=== PATIENT | male | born 1960 | race Caucasian/White ===

== ENCOUNTER → 2018-05-28 15:09 | Outpatient (CLI) | payer MEDICAID, SELFPAY ==
--- NOTE | 2018-05-28 15:15 | CT_ITS ---
STUDY: LOW DOSE CT LUNG CANCER SCREENING REASON FOR EXAM: Male, 58 years old. 45 pack-year smoking history. RADIATION DOSAGE (If Supplied By Facility): CTDIvol = ( 4.02 ) mGy, DLP = ( 142.95 ) mGycm TECHNIQUE: No contrast was administered. Low dose technique was utilized (average mAS-38 and kVp 120). 1.25 mm axial source images with a slice interval of 1.25-mm were reconstructed in lung windows. 2.5 mm axial source images with a slice interval of 2.5-mm were reconstructed in lung windows. 5.0 mm axial source images with a slice interval of 5.0-mm were reconstructed in soft tissue windows. Nodule measured using lung windows on PACS and/or independent workstation with automated measurement of minimum and maximum diameter. Nodule measurement reported as average diameter rounded to the nearest whole number. Growth is defined as an increase ins size of greater than 1.5 mm. COMPARISON: None. NODULES: No suspicious nodules are seen. Total lung nodules (excluding granulomas): 0 Aorta: Atherosclerotic calcification of the aortic arch. Coronary arteries: Coronary artery calcification. Mediastinal nodes: Small calcified mediastinal lymph nodes. Other chest and abdominal findings: CT/Low Dose CT Lung Screening IMPRESSION: Lung-RADS category 2 - Continue annual screening with LDCT in 12 months. IMPORTANT NOTES FOR USE: ACR Lung-RADS Version 1.0 Assessment Categories Release Date: July 01, 2013 Category: Coded 0-4 bases on nodule(s) with highest degree of suspicion. Negative screen is defined as categories 1 and 2; a positive screen is defined as categories 3 and 4. Category 3 and 4A nodules that are unchanged on interval CT should be coded as category 2, and individuals returned to screening in 12 months. Category 4X: Category 3 or 4 nodules with additional imaging findings that increase the suspicion of lung cancer, such as spiculation, GGN that doubles in size in 1 year, enlarged lymph notes, etc. Category Modifiers: S (significant finding unrelated to lung cancer) and C (prior history of treated lung cancer) may be added to the 0-4 Lung-RADS Electronically Signed: Rufus Pabon, at 14:46 EDT , Service support ,
== END ==
PROVIDERS: Family Provider Student in an Organized Health Care Education/Training Program; PCP Student in an Organized Health Care Education/Training Program; Referring Provider Student in an Organized Health Care Education/Training Program; Visit Provider Student in an Organized Health Care Education/Training Program
DX: Z12.2 Encounter for screening for malignant neoplasm of respiratory organs (principal)
CPT/HCPCS: G0297

== ENCOUNTER → 2023-08-29 | Outpatient (CLI) | payer MEDICAID, SELFPAY ==
--- NOTE | 2023-08-29 08:40 | US_ITS ---
STUDY: ABDOMINAL ULTRASOUND - RIGHT UPPER QUADRANT; ELASTOGRAPHY REASON FOR VISIT: Male, 63 years old. Hepatitis C. TECHNIQUE: Ultrasound evaluation of the right upper quadrant was performed with real-time and static owen-scale imaging. Point quantification shear wave elastography was performed ([employer]). TECHNICAL QUALITY: Adequate. COMPARISON: None. FINDINGS: Liver: The liver is enlarged and measures 18.6 cm. There is a heterogeneous echogenicity of the liver. The bile ducts are within normal limits. There is hepatic color flow. The direction of portal flow is hepatopetal. There is no demonstrated mass lesion. Median liver stiffness measured 8.7 kPa. Gallbladder: The patient is status post cholecystectomy. Common Bile Duct (C.B.D.): The common bile duct measures 6 mm. Pancreas: There is normal echogenicity of the visualized pancreas. There is no demonstrated pancreatic mass or cyst. Right Kidney: Normal size of the right kidney. The right kidney measures 13.1 cm x 5.8 cm x 6.6 cm. Normal renal cortex. The right cortex measures 1.2 cm. Multiple cysts are seen. The largest measures 4.5 cm x 4.2 cm x 3.6 cm. There is no right hydronephrosis. US/ABD Complete w/ Elastography IMPRESSION: 1. Liver stiffness measures 8.7 kPa compatible with F2-F3 (Mild to moderate liver fibrosis) Metavir score. Electronically Signed: Rufus Pabon MD at 14:54 EDT ,
== END | disposition home or self-care (01) ==
LOC: US 08:38
PROVIDERS: PCP Student in an Organized Health Care Education/Training Program; Referring Provider Internal Medicine Gastroenterology; Visit Provider Internal Medicine Gastroenterology
DX: B18.2 Chronic viral hepatitis C (principal)
CPT/HCPCS: 76700; 76981